=== PATIENT | male | born 1995 | race Caucasian/White ===

== ENCOUNTER 2020-05-05 08:50 | Emergency (ER) | payer BC ==
[~2020-05-05] VITALS: Ht 182.9 cm; Wt 103.4 kg
[2020-05-05 08:55] VITALS: Ht 182.9 cm; Wt 103.4 kg
[2020-05-05 12:11] VITALS: BP 118/59
== END 2020-05-05 12:11 | disposition short-term general hospital (02) ==
LOC: ED 08:50
DX: G40.901 Epilepsy, unspecified, not intractable, with status epilepticus (principal)
CPT/HCPCS: J1953; J2405